=== PATIENT | female | born 1950 | race Caucasian/White ===

== ENCOUNTER 2020-02-17 08:25 | Outpatient (CLI) | payer BC, OTHER ==
[2020-02-17 11:43] LABS: BASOPHILS % (AUTO) 0.7 %; EOSINOPHILS # (AUTO) 0.2 10^3/uL (0.0-0.7); EOSINOPHILS % (AUTO) 3.8 %; HGB - HEMOGLOBIN 13.4 g/dL (12.0-16.0); LYMPHOCYTES # (AUTO) 1.5 10^3/uL (1.5-3.5); MEAN CORPUSCULAR HEMOGLOBIN 30.7 pg (27.0-31.0); MEAN CORPUSCULAR HGB CONC 32.2 g/dL (32.0-36.0); MEAN CORPUSCULAR VOLUME 95.4 fL (81.0-99.0); MEAN PLATELET VOLUME 11.7 fL (7.9-10.8); MONOCYTES # (AUTO) 0.4 10^3/uL (0.0-1.0); MONOCYTES % (AUTO) 9.7 %; NEUTROPHILS # (AUTO) 2.3 10^3/uL (1.5-6.6); NEUTROPHILS % (AUTO) 52.8 %; PLT - PLATELET COUNT 217 10^3/uL (130-450); RED BLOOD COUNT 4.36 10^6/uL (4.20-5.40); RED CELL DISTRIBUTION WIDTH 12.6 % (12.0-15.0); WHITE BLOOD COUNT 4.4 x10^3/uL (4.8-10.8)
[2020-02-17 12:16] LABS: ALBUMIN 4.8 g/dL (3.2-5.5); ALBUMIN/GLOBULIN RATIO 1.8 (1.0-2.2); ALKALINE PHOSPHATASE 71 IU/L (42-121); ALT ALANINE AMINOTRANSFERASE 17 IU/L (10-60); AST ASPARTATE AMINOTRANSFERASE 17 IU/L (10-42); BILIRUBIN,TOTAL 1.1 mg/dL (0.2-1.0); BUN - BLOOD UREA NITROGEN 14 mg/dL (6-20); CALCIUM 9.5 mg/dL (8.5-10.3); CARBON DIOXIDE - CO2 28 mmol/L (21-32); CHLORIDE 103 mmol/L (101-111); CHOL/HDL RATIO 2.5 (<4.4); CHOLESTEROL 208 mg/dL; CREATININE 0.7 mg/dL (0.4-1.0); GLUCOSE 92 mg/dL (70-100); HDL CHOLESTEROL 83 mg/dL; LDL CHOLESTEROL,CALCULATED 114 mg/dL; LDL/HDL RATIO 1.4 (<4.4); SODIUM 141 mmol/L (135-145); TOTAL PROTEIN 7.5 g/dL (6.7-8.2); VLDL CHOLESTEROL 11 mg/dL
== END 2020-02-17 23:59 | disposition home or self-care (01) ==
LOC: LAB.WCP 08:25
PROVIDERS: ATTEND Nurse Practitioner
DX: M25.512 Pain in left shoulder (principal); Z82.49 Family history of ischemic heart disease and other diseases of the circulatory system; K21.9 Gastro-esophageal reflux disease without esophagitis
CPT/HCPCS: 36415; 80053; 80061; 83721; 85025

== ENCOUNTER 2020-03-04 06:43 | Outpatient (CLI) | payer BC ==
--- NOTE | 2020-03-04 10:09 | XRAY Report ---
PROCEDURE: Shoulder 3 View LT INDICATIONS: SHOULDER PAIN TECHNIQUE: 3 views of the shoulder were acquired. COMPARISON: None. FINDINGS: Bones: No fractures or dislocations. Mild acromioclavicular joint and glenohumeral joint osteophytic changes are seen. No suspicious bony lesions. Visualized ribs appear intact. Soft tissues: No suspicious soft tissue calcifications. IMPRESSION: Mild left shoulder joint osteoarthritis. No fracture or dislocation. No suspicious bony lesion. Reviewed by: Patrice Temple MD on 03/04/2020 10:08 AM PDT Approved by: Patrice Temple MD on 03/04/2020 10:08 AM PDT Station ID: [id number]
--- NOTE | 2020-03-04 10:27 | Ultrasound Report ---
PROCEDURE: Ext Limited Non Vascular INDICATIONS: MASS OF LT SHOULDER JOINT, LT SHOULDER PAIN TECHNIQUE: Real-time scanning was performed of the posterior left shoulder, with image documentation . COMPARISON: None. FINDINGS: Focus ultrasound examination in posterior left shoulder at the level of scapula shows a 3.2 x 3 x 1.8 cm heterogeneously echogenic structure is subcutaneous soft tissue. No internal vascularity is seen. No surrounding hyperemia. No underlying left shoulder muscle involvement. IMPRESSION: Findings suggestive of a 3.2 x 3 x 1.8 cm lipoma in left posterior shoulder subcutaneous soft tissue. Reviewed by: Patrice Temple MD on 03/04/2020 10:26 AM PDT Approved by: Patrice Temple MD on 03/04/2020 10:26 AM PDT Station ID: [id number]
== END 2020-03-04 06:44 | disposition home or self-care (01) ==
LOC: DI 06:43
PROVIDERS: ATTEND Nurse Practitioner
DX: M19.012 Primary osteoarthritis, left shoulder (principal); R93.89 Abnormal findings on diagnostic imaging of other specified body structures
CPT/HCPCS: 76882

== ENCOUNTER 2020-05-05 11:45 | Outpatient (CLI) | payer BC ==
--- NOTE | 2020-05-06 13:53 | Mammography Report ---
BILATERAL DIGITAL SCREENING MAMMOGRAM 3D/2D: 05/05/2020 CLINICAL: Routine screening. Comparison is made to exam dated: 10/13/2014 mammogram - [facility]. The tissue of both breasts is extremely dense, which lowers the sensitivity of mammography. There are benign calcifications in both breasts. No significant masses, calcifications, or other findings are seen in either breast. There has been no significant interval change. IMPRESSION: BENIGN There is no mammographic evidence of malignancy. A 1 year screening mammogram is recommended. This exam was interpreted at Station ID: [id number]. NOTE: For mammograms, a report in lay terms will be sent to the patient. Approximately 15% of breast malignancies will not be visualized mammographically. In the management of a palpable breast mass, a negative mammogram must not discourage biopsy of a clinically suspicious lesion. Electronically Signed By: Joel Isaac M.D. [facility]:05/05/2020 17:05:59 ACR BI-RADS Category 2: Benign Finding(s) 3342F PARENCHYMAL PATTERN: (VD) - The breast(s) demonstrate(s) extremely dense parenchyma, limiting the sen sitivity of mammography. BI-RADS CATEGORY: (2) - 2 RECOMMENDATION: (ANNUAL) - Recommend routine annual screening mammography. [id number] 1 year screening LATERALITY: (B)
== END 2020-05-05 11:46 | disposition home or self-care (01) ==
LOC: DI 11:45
PROVIDERS: ATTEND Nurse Practitioner
DX: Z12.31 Encounter for screening mammogram for malignant neoplasm of breast (principal)
CPT/HCPCS: 77063; 77067

== ENCOUNTER 2020-12-07 08:00 | Outpatient (CLI) | payer BC ==
[2020-12-07 12:01] LABS: BASOPHILS % (AUTO) 0.4 %; EOSINOPHILS # (AUTO) 0.2 10^3/uL (0.0-0.7); EOSINOPHILS % (AUTO) 4.2 %; HCT - HEMATOCRIT 40.9 % (37.0-47.0); HGB - HEMOGLOBIN 12.8 g/dL (12.0-16.0); LYMPHOCYTES # (AUTO) 1.8 10^3/uL (1.5-3.5); LYMPHOCYTES % (AUTO) 35.1 %; MEAN CORPUSCULAR HEMOGLOBIN 29.8 pg (27.0-31.0); MEAN CORPUSCULAR HGB CONC 31.3 g/dL (32.0-36.0); MEAN CORPUSCULAR VOLUME 95.1 fL (81.0-99.0); MEAN PLATELET VOLUME 11.3 fL (7.9-10.8); MONOCYTES # (AUTO) 0.4 10^3/uL (0.0-1.0); MONOCYTES % (AUTO) 8.6 %; NEUTROPHILS # (AUTO) 2.6 10^3/uL (1.5-6.6); NEUTROPHILS % (AUTO) 51.5 %; PLT - PLATELET COUNT 226 10^3/uL (130-450); RED CELL DISTRIBUTION WIDTH 12.8 % (12.0-15.0)
[2020-12-07 12:07] LABS: CREATININE,URINE 63.9 mg/dL; MICROALBUM/CREATININE RATIO,UR 3.1 ug/mg (<30.0); MICROALBUMIN,URINE 0.2 mg/dL (0-300.0)
[2020-12-07 12:22] LABS: ALBUMIN 4.5 g/dL (3.2-5.5); ALBUMIN/GLOBULIN RATIO 1.7 (1.0-2.2); BILIRUBIN,TOTAL 0.6 mg/dL (0.2-1.0); CALCIUM 9.6 mg/dL (8.5-10.3); CREATININE 0.7 mg/dL (0.4-1.0); POTASSIUM 4.8 mmol/L (3.5-5.0); TOTAL PROTEIN 7.1 g/dL (6.7-8.2)
[2020-12-07 12:24] LABS: THYROID STIMULATING HORMONE 0.75 uIU/mL (0.34-5.60)
== END 2020-12-07 23:59 | disposition home or self-care (01) ==
LOC: LAB.WCP 08:00
PROVIDERS: ATTEND Family Medicine
DX: R63.4 Abnormal weight loss (principal)
CPT/HCPCS: 36415; 80053; 82043; 82570; 83615; 84134; 84443; 85025

== ENCOUNTER 2021-03-16 07:46 | Day surgery (SDC) | payer BC ==
[2021-03-16] MEDS ORDERED: LACTATED RINGERS 1,000 ML IV ONE ×2 (07:53→11:02)
--- NOTE | 2021-03-16 08:41 | ANESTHESIA ---
Pre-Anesthesia VS, & Labs - Diagnosis screening - Procedure colonoscopy Vital Signs: Temp Pulse Resp BP Pulse Ox 36.8 C 74 16 126/78 100 03/16/21 08:03 03/16/21 08:03 03/16/21 08:03 03/16/21 08:03 03/16/21 08:03 Height: 5 ft 4 in Weight (kg): 54 kg Body Mass Index: 20.4 BMI Classification: Healthy weight - NPO >8 hours - Is Patient ?: No Home Medications and Allergies none Allergies/Adverse Reactions: Allergies Allergy/AdvReac Type Severity Reaction Status Date / Time No Known Drug Allergies Allergy Verified 03/16/21 08:41 Anes History & Medical History - Anesthetic History Anesthesia Complications: reports: No previous complications - Medical History Cardiovascular: reports: None Pulmonary: reports: None Gastrointestinal: reports: None Urinary: reports: None Neuro: reports: None Musculoskeletal: reports: None Endocrine/Autoimmune: reports: None Blood Disorders: reports: None Skin: reports: None Smoking Status: Never smoker Psychosocial: reports: No issues indicated History of Cancer?: No - Surgical History Eyes Ears Nose Throat (EENT): reports: Tonsil/Adenoidectomy Exam General: Alert, Oriented x3, Cooperative, No acute distress Dental: WNL Mouth Openin Fingerbreadth Neck Mobility: Normal Mallampati classification: II Thyromental Distance: 4-6 cm Mental/Cognitive Status: Alert/Oriented X3, Normal for patient Plan Anesthesia Type: MAC Consent for Procedure(s) Verified and Reviewed: Yes Code Status: Attempt Resuscitation ASA classification: 1-Healthy patient Is this case an emergency?: No
[2021-03-16] MEDS ORDERED: MIDAZOLAM 2 MG/2 ML VIAL ONE (09:20)
[2021-03-16] MEDS ORDERED: fentaNYL 100 MCG/2 ML VIAL ONE ×2 (09:20→10:14)
[2021-03-16] MEDS ORDERED: PROPOFOL 200 MG/20 ML VIAL IVP ONE ×3 (09:20→14:27)
[2021-03-16] MEDS ORDERED: GLYCOPYRROLATE 1 MG/5 ML VIAL ONE (09:51)
[2021-03-16] MEDS ORDERED: IOPAMIDOL-300 100 ML VIAL ONE (11:33)
[2021-03-16 11:41] LABS: BASOPHILS % (AUTO) 0.5 %; EOSINOPHILS # (AUTO) 0.1 10^3/uL (0.0-0.7); EOSINOPHILS % (AUTO) 3.3 %; HGB - HEMOGLOBIN 12.3 g/dL (12.0-16.0); LYMPHOCYTES # (AUTO) 1.1 10^3/uL (1.5-3.5); LYMPHOCYTES % (AUTO) 25.6 %; MEAN CORPUSCULAR HEMOGLOBIN 30.1 pg (27.0-31.0); MEAN CORPUSCULAR HGB CONC 31.5 g/dL (32.0-36.0); MEAN CORPUSCULAR VOLUME 95.4 fL (81.0-99.0); MEAN PLATELET VOLUME 10.5 fL (7.9-10.8); MONOCYTES # (AUTO) 0.3 10^3/uL (0.0-1.0); MONOCYTES % (AUTO) 7.5 %; NEUTROPHILS # (AUTO) 2.7 10^3/uL (1.5-6.6); NEUTROPHILS % (AUTO) 62.9 %; PLT - PLATELET COUNT 228 10^3/uL (130-450); RED BLOOD COUNT 4.09 10^6/uL (4.20-5.40); RED CELL DISTRIBUTION WIDTH 12.6 % (12.0-15.0); WHITE BLOOD COUNT 4.3 x10^3/uL (4.8-10.8)
[2021-03-16] MEDS ORDERED: IOVERSOL 320 50 ML VIAL ONE (11:44)
[2021-03-16 11:52] LABS: ALBUMIN 3.9 g/dL (3.2-5.5); ALBUMIN/GLOBULIN RATIO 1.3 (1.0-2.2); BILIRUBIN,TOTAL 0.5 mg/dL (0.2-1.0); CALCIUM 9.3 mg/dL (8.5-10.3); CREATININE 0.6 mg/dL (0.4-1.0); POTASSIUM 4.3 mmol/L (3.5-5.0); TOTAL PROTEIN 6.8 g/dL (6.7-8.2)
--- NOTE | 2021-03-16 12:19 | ANESTHESIA POST OP EVALUATION ---
Anesthesia Post Eval - Post Anesthesia Eval Vitals: Last Vital Signs Temp 36.6 C 03/16/21 11:45 Pulse 60 03/16/21 11:45 Resp 12 03/16/21 11:45 BP 120/62 03/16/21 11:45 Pulse Ox 100 03/16/21 11:45 CV Function Including HR & BP: Stable Pain Control: Satisfactory Nausea & Vomiting: Negative Mental Status: Baseline Respiratory Status: Airway Patent Hydration Status: Satisfactory Anesthesia Complications: None
[2021-03-16] MEDS ORDERED: IOPAMIDOL-300 100 ML VIAL IVP ONE (13:30)
[2021-03-16] MEDS ORDERED: IOVERSOL 320 50 ML VIAL PO ONE (13:30)
--- NOTE | 2021-03-16 13:33 | CT Report ---
PROCEDURE: Abdomen/Pelvis W INDICATIONS: Right colon mass CONTRAST: IV CONTRAST: Isovue 300 ml: 100 PO CONTRAST: Optiray 320 ml50 TECHNIQUE: After the administration of weight appropriate dose of intravenous contrast, 5 mm thick sections acqu ired from the diaphragms to the symphysis. 5 mm thick coronal and sagittal reformats were acquired. For radiation dose reduction, the following was used: automated exposure control, adjustment of mA and/or kV according to patient size. Oral contrast was also administered. COMPARISON: None. FINDINGS: Image quality: Excellent. ABDOMEN: Lung bases: Patchy bibasilar atelectasis. No focal consolidation. Heart size is normal. Solid organs: Liver and spleen are normal in size and enhancement. There are a few subtle, sub-5 mm hepatic hypodensity which are too small to characterize but likely represent cysts versus hemangiomas . An example is noted in the right hepatic dome measuring approximately 4 mm seen on image 10, series 3 and image 26, series 6. Gallbladder is partially decompressed but otherwise unremarkable. No secon jonatan signs of acute inflammatory change. Biliary system is non dilated. Pancreas enhances normally. No adrenal nodules. Kidneys demonstrate normal size and enhancement, without hydronephrosis. Peritoneum and bowel: Oral contrast does not extend to the colon. Only a tiny amount of oral contras t is seen in the cecum. The colon is predominantly decompressed. There is mild circumferential wall t hickening of the cecum, possibility from biopsies obtained from today's colonoscopy. No evidence for free air or organized fluid collection. There is suggestion of minimal edema near the ileocecal valve . There is slight fatty prominence of the ileocecal valve but no evidence for enhancing mass lesion, extraluminal mass, or adenopathy. Remainder the visualized bowel loops demonstrate normal wall thickn ess and caliber. No free fluid or air. Nodes and vessels: No retroperitoneal or mesenteric adenopathy by size criteria. Aorta and inferior vena cava are normal in size. Miscellaneous: No ventral hernias. PELVIS: Genitourinary: Bladder wall thickness is normal for degree of distention. Miscellaneous: No inguinal hernias or adenopathy. Bones: No suspicious bony lesions. No acute vertebral body compression fractures. Minimal grade 1 anterolisthesis of L3 on L4. Lower lumbar facet arthropathy and spondylitic changes. IMPRESSION: 1. There is mild circumferential wall thickening of the decompressed cecum and proximal ascending col on possibly related to sequela of biopsy is from today's colonoscopy. No evidence for perforation or extraluminal fluid collections. There is no definite focal mass identified to correlate with colonosc opy findings. No adenopathy seen. There is minimal fatty hypertrophy of the ileocecal valve. 2. No acute abnormalities identified in the abdomen or pelvis. 3. A few scattered sub-5 mm hepatic hypodensities which are too small to characterize but likely repr esenting cysts versus hemangiomas. Findings were discussed telephonically with Dr. Brooks. Reviewed by: Channing Olivares MD on 03/16/2021 1:32 PM PDT Approved by: Channing Olivares MD on 03/16/2021 1:32 PM PDT Station ID: [id number]
[2021-03-16 14:10] VITALS: BP 110/62
== END 2021-03-16 07:47 | disposition home or self-care (01) ==
LOC: SDS 07:46
PROVIDERS: ATTEND Surgery
PROC: 0DBK8ZZ Excision of Ascending Colon, Via Natural or Artificial Opening Endoscopic (ICD-10-PCS; 2021-03-16)
PROC: 0DBL8ZZ Excision of Transverse Colon, Via Natural or Artificial Opening Endoscopic (ICD-10-PCS; principal; 2021-03-16 09:15)
DX: Z12.11 Encounter for screening for malignant neoplasm of colon (principal); C18.4 Malignant neoplasm of transverse colon; D12.2 Benign neoplasm of ascending colon; D12.5 Benign neoplasm of sigmoid colon; D12.3 Benign neoplasm of transverse colon; D12.8 Benign neoplasm of rectum
CPT/HCPCS: 36415; 45380; 45385; 74177; 80053; 82378; 85025; J7120; Q9967

== ENCOUNTER 2021-03-22 16:47 | Outpatient (CLI) | payer BC | END 2021-03-22 16:48 | disposition home or self-care (01) | LOC: COV 16:47 | PROVIDERS: ATTEND Surgery | DX: Z01.812 Encounter for preprocedural laboratory examination (principal); C18.9 Malignant neoplasm of colon, unspecified; Z20.822 Contact with and (suspected) exposure to COVID-19 ==

== ENCOUNTER 2021-03-25 08:08 | Inpatient (IN) | payer BC ==
[2021-03-25] MEDS ORDERED: CEFOTETAN DISODIUM 2 GM in SODIUM CHLORIDE 0.9% 100ML 100 ML IV SCH (10:00)
[2021-03-25] MEDS ORDERED: LACTATED RINGERS 1,000 ML IV ONE ×3 (10:29→14:52)
[2021-03-25] MEDS ORDERED: BUPIVACAINE 0.25% PF 30 ML VIAL ONE (10:37)
[2021-03-25] MEDS ORDERED: LIDOCAINE 2%-EPI 1:100000 20 ML MDV ONE (10:37)
[2021-03-25] MEDS ORDERED: CELECOXIB 100 MG CAPSULE PO ONE ×2 (10:46→10:49)
[2021-03-25] MEDS ORDERED: ACETAMINOPHEN 500 MG TABLET PO ONE ×2 (10:46→10:49)
[2021-03-25] MEDS ORDERED: GABAPENTIN 400 MG CAPSULE ONE (10:49)
--- NOTE | 2021-03-25 10:50 | ANESTHESIA ---
Pre-Anesthesia VS, & Labs - Diagnosis Right colon adenocarcinoma - Procedure Laparoscopic assisted colectomy Vital Signs: Temp Pulse Resp BP Pulse Ox 36.8 C 82 20 131/84 H 100 03/25/21 09:58 03/25/21 09:58 03/25/21 09:58 03/25/21 09:58 03/25/21 09:58 Height: 5 ft 4 in Weight (kg): 54 kg Body Mass Index: 20.4 BMI Classification: Healthy weight - NPO >8 hours - Is Patient ?: No Home Medications and Allergies Home Medications: Ambulatory Orders Cholecalciferol (Vitamin D3) [Vitamin D3] 1,000 units PO DAILY 03/19/21 Active Medications Acetaminophen (Acetaminophen 500 Mg Tablet) 1,000 mg PO ONCE ONE Stop: 03/25/21 10:47 Celecoxib (Celecoxib 100 Mg Capsule) 400 mg PO ONCE ONE Stop: 03/25/21 10:47 Gabapentin (Gabapentin 100 Mg Capsule) 800 mg PO ONCE ONE Stop: 03/25/21 10:48 Cefotetan Disodium 2 gm/ (Sodium Chloride) 100 mls @ 200 mls/hr IV ONCE LANDRY Stop: 03/25/21 13:00 Cholecalciferol (Vitamin D3) [Vitamin D3] 1,000 units PO DAILY 03/19/21 Allergies/Adverse Reactions: Allergies Allergy/AdvReac Type Severity Reaction Status Date / Time No Known Drug Allergies Allergy Verified 03/16/21 08:41 Anes History & Medical History - Anesthetic History Anesthesia Complications: reports: No previous complications - Medical History Cardiovascular: reports: None Pulmonary: reports: None Gastrointestinal: reports: GERD Urinary: reports: None Neuro: reports: None Musculoskeletal: reports: None Endocrine/Autoimmune: reports: None Blood Disorders: reports: None Skin: reports: None Smoking Status: Never smoker Psychosocial: reports: No issues indicated History of Cancer?: Yes - Surgical History General: reports: Colonoscopy Exam General: Alert, Oriented x3, Cooperative, No acute distress Dental: WNL Mouth Openin Fingerbreadth Neck Mobility: Normal Mallampati classification: II Thyromental Distance: 4-6 cm Mental/Cognitive Status: Alert/Oriented X3, Normal for patient Plan Anesthesia Type: General, Transverse Abdominis Plane (TAP) Block (Bilateral) Regional Block: Per Surgeon's request for Post Op pain control Consent for Procedure(s) Verified and Reviewed: Yes Code Status: Attempt Resuscitation ASA classification: 1-Healthy patient Is this case an emergency?: No
[2021-03-25] MEDS ORDERED: ROCURONIUM 50 MG/5 ML VIAL ONE ×2 (10:57→12:49)
[2021-03-25] MEDS ORDERED: PROPOFOL 200 MG/20 ML VIAL IVP ONE (10:57)
[2021-03-25] MEDS ORDERED: LIDOCAINE-MPF 2% 5 ML VIAL ONE (10:57)
[2021-03-25] MEDS ORDERED: MIDAZOLAM 2 MG/2 ML VIAL ONE (10:58)
[2021-03-25] MEDS ORDERED: fentaNYL 100 MCG/2 ML VIAL ONE ×2 (10:58→12:21)
[2021-03-25] MEDS ORDERED: GABAPENTIN 400 MG CAPSULE PO ONE (11:00)
[2021-03-25] MEDS ORDERED: DEXAMETHASONE 4 MG/ML VIAL ONE (12:00)
[2021-03-25] MEDS ORDERED: LIDOCAINE 2%-EPI 1:100000 20 ML MDV SUBQ ONE ×2 (12:08)
[2021-03-25] MEDS ORDERED: BUPIVACAINE 0.25% PF 30 ML VIAL SUBQ ONE ×2 (12:08)
[2021-03-25] MEDS ORDERED: LABETALOL 5 MG/1 ML 20 ML MDV ONE (12:46)
[2021-03-25] MEDS ORDERED: ROPIVACAINE 0.5% PF 20 ML AMPULE ONE (13:13)
[2021-03-25] MEDS ORDERED: EPINEPHrine 1 MG/ML AMP ONE (13:14)
[2021-03-25] MEDS ORDERED: SUGAMMADEX 200 MG/2 ML VIAL IVP ONE (13:37)
[2021-03-25] MEDS ORDERED: ONDANSETRON 4 MG/2 ML VIAL ONE (13:37)
[2021-03-25] MEDS ORDERED: ONDANSETRON 4 MG/2 ML VIAL IVP PRN ×2 (14:12→14:19)
[2021-03-25] MEDS ORDERED: ATROPINE ABBOJECT 1 MG/10 ML SYRINGE IVP PRN (14:19)
[2021-03-25] MEDS ORDERED: MORPHINE 2 MG/ML CARPUJECT IVP PRN (14:19)
[2021-03-25] MEDS ORDERED: fentaNYL 100 MCG/2 ML VIAL IVP PRN (14:19)
[2021-03-25] MEDS ORDERED: HYDROmorphone 0.5 MG/0.5 ML SYRINGE IVP PRN (14:19)
[2021-03-25] MEDS ORDERED: NALOXONE 0.4 MG/ML VIAL IVP PRN (14:19)
[2021-03-25] MEDS ORDERED: HYDROmorphone 0.5 MG/0.5 ML SYRINGE ONE ×2 (14:35→14:40)
[2021-03-25] MEDS ORDERED: LACTATED RINGERS 1,000 ML IV SCH (15:00)
[2021-03-25] MEDS: methocarbamoL 500 MG TABLET PO PRN (15:12)
--- NOTE | 2021-03-25 15:32 | HISTORY & PHYSICAL EXAMINATION ---
HPI - Admitted From Admitted from: Other (Surgery) - History Obtained From History obtained from: Patient - History of Present Illness Pain/Problem Location Description: New diagnosis of right colon cancer HPI Comment/Other: Azeb is a mery and remarkably healthy 70-year-old lady who presented for her for screening colonoscopy approximately 10 days ago. At that time she was noted to have a right colon mass as well as multiple polyps throughout her colon. Pathology returned a diagnosis of infiltrating cancer in the right colon and all of the other remaining polyps were tubular adenomas. She presents today for elective right hemicolectomy for treatment of right colon cancer. PMH/PSH - Past Medical History Cardiovascular: positive: None Respiratory: positive: None Neuro: positive: None Endocrine/Autoimmune: positive: None GI: positive: GERD : positive: None HEENT: positive: Chronic vision loss Musculoskeletal: positive: None Derm: positive: None MRSA Hx?: No - Past Surgical History General: positive: Colonoscopy Social & Family Hx - Living Situation Living Arrangement: At home Living Situation: With spouse/s.o. - Social History Smoking Status: Never smoker Meds/Allgy - Home Medications Home Medications: Ambulatory Orders Medication Instructions Recorded Confirmed Cholecalciferol (Vitamin D3) 1,000 units PO DAILY 03/19/21 03/25/21 [Vitamin D3] - Allergies Allergies/Adverse Reactions: Allergies Allergy/AdvReac Type Severity Reaction Status Date / Time No Known Drug Allergies Allergy Verified 03/16/21 08:41 Review of Systems - All Other Systems All Other Systems: reports: Reviewed and negative Exam - Vital Signs Reviewed Vital Signs: Yes Vital Signs: Vital Signs x48h Temp Pulse Pulse Resp BP BP Pulse Ox 03/25/21 15:05 63 12 140/79 H 100 03/25/21 14:42 36.4 C L 74 12 129/76 95 03/25/21 14:25 36.6 C 76 17 140/86 H 100 03/25/21 14:19 36.2 C L 77 18 148/82 H 100 03/25/21 14:14 36.5 C 74 14 143/87 H 100 03/25/21 14:09 36.8 C 73 12 150/85 H 100 03/25/21 14:04 36.8 C 76 16 145/87 H 100 03/25/21 09:58 36.8 C 82 20 131/84 H 100 - Physical Exam General Appearance: positive: No acute distress, Alert Eyes Bilateral: positive: Normal inspection, PERRL, EOMI ENT: positive: ENT inspection nml, Pharynx nml, No signs of dehydration Neck: positive: Nml inspection, Thyroid nml, No JVD Respiratory: positive: No respiratory distress, Breath sounds nml Cardiovascular: positive: Regular rate & rhythm, No murmur Peripheral Pulses: positive: 1+ Abdomen: positive: Nml bowel sounds, No distention. negative: Guarding, Rebound Back: negative: CVA tenderness (R), CVA tenderness (L) Skin: positive: Color nml Neurologic/Psychiatric: positive: Oriented x3 Results - Diagnostic Imaging Results Diagnostic Imaging Results Comments: CT scan of the abdomen and pelvis revealed no evidence of metastatic disease and no significant lymphadenopathy Impression/Plan - Problem List Problem List: New diagnosis of right colon cancer now for elective right hemicolectomy. We have discussed the risks, benefits, and alternatives to the operation. The patient has expressed verbal and written consent to proceed
--- NOTE | 2021-03-25 15:54 | ANESTHESIA POST OP EVALUATION ---
Anesthesia Post Eval - Post Anesthesia Eval Vitals: Last Vital Signs Temp 36.4 C L 03/25/21 14:42 Pulse 63 03/25/21 15:05 Resp 12 03/25/21 15:05 BP 140/79 H 03/25/21 15:05 Pulse Ox 100 03/25/21 15:05 CV Function Including HR & BP: Stable Pain Control: Satisfactory Nausea & Vomiting: Negative Mental Status: Baseline Respiratory Status: Airway Patent Hydration Status: Satisfactory Anesthesia Complications: None
[2021-03-25] MEDS: LACTATED RINGERS 1,000 ML IV SCH (15:57)
[2021-03-25] MEDS: HYDROmorphone 0.5 MG/0.5 ML SYRINGE IVP PRN (16:17)
--- NOTE | 2021-03-25 16:35 | OPERATIVE REPORT ---
Operative Report - General Admit Date: 03/25/21 Planned Procedure: Laparoscopic right hemicolectomy Pre-Op Diagnosis: Right colon cancer Procedure Performed: Laparoscopic right hemicolectomy with extracorporeal anastomosis Post Op Diagnosis: Right colon cancer - Procedure Note Primary Surgeon: Cecilia Secondary Surgeon: Andrew Anesthesia Provider: ANDERSON Butler Anesthesia Technique: General ET tube Pathology: Right colon to pathology in formalin IV Fluids (mL): 1,600 Estimated Blood Loss (mL): 25 Indications: Biopsy proven right colon cancer Findings: Neoplasm identified in the proximal right colon Complications: None apparent - Other Other Information/Narrative: After obtaining informed consent, the patient is brought to the operating room and placed in the supine position on the operating table. Following successful induction of general endotracheal anesthesia, appropriate padding of all bony prominences, and placement appropriate monitors, the abdomen is prepped and draped in the standard surgical fashion. A timeout was held per scope protocol. All elements of the surgical safety checklist were followed before, during, and after the procedure. We began the procedure by infiltrating a mixture of local anesthetics inferior to the umbilicus. A 1.5 cm incision was created here and carried down through the skin and subcutaneous tissue to reveal the fascia below. 2-0 Vicryl retention sutures were placed on either side of the midline and the abdomen entered under direct vision using a 15 blade scalpel. A 12 mm blunt White balloon trocar was placed in the abdominal cavity and it was insufflated to 15 mmHg pressure. A 5 mm trocar was placed midway between the umbilicus and the pubis and a second 5 mm trocar placed in the left lower quadrant. The camera was placed in the midline position and the abdomen surveyed. There was no gross evidence of pathology. The liver and gallbladder appeared normal. The spleen was smooth and normal in appearance. There were no other masses or hernias appreciated.The patient was placed in Trendelenburg with the left side rotated toward the floor. This allowed better visualization of the right colon and region of the cecum by allowing gravity to help with retraction. We began by lifting the terminal ileum and dividing the retroperitoneal attachments freeing the ileum laterally. We continued dissection laterally along the white line of Toldt and an onion skin fashion. We used blunt forceps to roll the tissue medially and to dissected it within its planes using LigaSure device to divide tissue that was easily transilluminated. The right ureter was identified just posterior and lateral to the terminal ileum and was carefully preserved.Once the entire right colon and ileum were mobilized, We placed the patient in reverse Trendelenburg position. A third 5 mm trocar was placed in the left upper quadrant. We began by opening the gastrocolic ligament and beginning dissection in a medial to lateral fashion.Again care was taken to divide tissue only that could be easily seen through.The duodenum was visualized and carefully preserved. It was attached by multiple adhesions to the gallbladder. These were filmy in nature and we were able to gently brush them down.We continued our dissection laterally until the 2 lines of dissection joint. We were careful to preserve the retroperitoneum and not to enter Gerota's fascia. We continued carefully easing the colon toward the midline and dividing tissue as we could see through it.Once mobilization was complete, the colon was returned to its anatomic position.The transverse colon was lifted revealing the open window expected in the dissection at this point. We continued our use of the LigaSure along the mesentery laterally until the right colic branch of the artery was identified.We identified both the artery and vein. Both were addressed separately with hemoclips and then divided at their origin using the LigaSure device. We turned our attention back to the transverse colon. We carefully identified the right branch of the middle colic artery. This was also ligated with hemoclips and then divided with LigaSure device. The remainder of the middle colic artery was visualized and preserved.The abdomen was checked for hemostasis. It was carefully irrigated with 500 cc of warm saline solution and aspirated free of all fluid and particulate matter. At this point we concluded the laparoscopic portion of the procedure and prepared to perform an extrac orporeal anastomosis. All trochars were removed under direct vision. The midline incision was extended to 4 cm with the fascial incision extended to 6 cm. A small wound management device was placed in the abdominal cavity. The colon was easily grasped as it had been placed right under the wound before closing the laparoscopic portion of the procedure. The colon and ileum were easily delivered into the field.The ligated branches of the right colic artery and the right branch of the middle colic artery were both identified. A 75 mm LANA stapling device was used to divide the ileum just proximal to the ileocecal valve. A Melecio clamp was placed on this resection margin to maintain orientation. We then divided the transverse colon in the same manner and again placed a Melecio device to maintain orientation. The specimen was passed from the table. The ileum and transverse colon were then lined up to perform a [id number] functional end-to-end anastomosis. Silk sutures were placed for retention just proximal to the resection line of each organ. An opening was made in the ileum and in the colon to allow for a 75 mm LANA stapling device. The device was fired. The anastomosis was determined to be hemostatic and patent. Multiple silk sutures were then used to carefully meticulously aligned the edges of the colon and ileum prior to closing the anastomotic defect. A TA 90 stapling device was then placed across the end and fired. The remaining resection margin was trimmed. The entire staple line was then oversewn in a Lembert fashion with interrupted 3-0 Vicryl sutures. The anastomosis was checked for patency. Additional supporting sutures were placed in the crotch and and the other staple lines. It was tested and found to be watertight by occluding both ends and applying pressure.The anastomosis was dropped back into the abdominal cavity. The abdomen was once again irrigated with warm saline solution and aspirated free of all fluid and particulate matter. The wound global marketing operations manager was removed. The midline incision was closed with running looped PDS suture. All skin incisions were closed with 4-0 Monocryl subcuticular stitches. All sponge, needle, and instrument counts were correct at the conclusion of the case. The patient was allowed to wake from anesthesia without difficulty and taken to the postanesthesia care unit in good condition.
[2021-03-25] MEDS: ACETAMINOPHEN 1,000 MG/100 ML 100 ML IV SCH (18:07)
[2021-03-25] MEDS: PREGABALIN 25 MG CAPSULE PO SCH (21:09)
[2021-03-25] MEDS: CEFOTETAN DISODIUM 1 GM in SODIUM CHLORIDE 0.9% MINIBAG 100 ML IV SCH (21:10)
[2021-03-26] MEDS: ACETAMINOPHEN 1,000 MG/100 ML 100 ML IV SCH ×2 (00:24→06:14)
[2021-03-26] MEDS: methocarbamoL 500 MG TABLET PO PRN (03:45)
[2021-03-26] MEDS: PANTOPRAZOLE 40 MG VIAL IVP SCH (06:09)
[2021-03-26 07:22] LABS: BASOPHILS % (AUTO) 0.3 %; EOSINOPHILS % (AUTO) 0.1 %; HCT - HEMATOCRIT 33.4 % (37.0-47.0); HGB - HEMOGLOBIN 10.6 g/dL (12.0-16.0); LYMPHOCYTES # (AUTO) 1.7 10^3/uL (1.5-3.5); LYMPHOCYTES % (AUTO) 17.6 %; MEAN CORPUSCULAR HGB CONC 31.7 g/dL (32.0-36.0); MEAN CORPUSCULAR VOLUME 94.6 fL (81.0-99.0); MONOCYTES # (AUTO) 0.8 10^3/uL (0.0-1.0); MONOCYTES % (AUTO) 8.5 %; NEUTROPHILS % (AUTO) 73.1 %; PLT - PLATELET COUNT 194 10^3/uL (130-450); RED BLOOD COUNT 3.53 10^6/uL (4.20-5.40); RED CELL DISTRIBUTION WIDTH 12.7 % (12.0-15.0); WHITE BLOOD COUNT 9.6 x10^3/uL (4.8-10.8)
[2021-03-26 07:27] LABS: ALBUMIN 3.4 g/dL (3.2-5.5); ALBUMIN/GLOBULIN RATIO 1.5 (1.0-2.2); BILIRUBIN,TOTAL 0.9 mg/dL (0.2-1.0); CALCIUM 8.9 mg/dL (8.5-10.3); CREATININE 0.7 mg/dL (0.4-1.0); POTASSIUM 4.2 mmol/L (3.5-5.0); TOTAL PROTEIN 5.7 g/dL (6.7-8.2)
[2021-03-26] MEDS ORDERED: SODIUM CHLORIDE 0.9% MINIBAG 100 ML IV ONE (08:44)
[2021-03-26] MEDS: PREGABALIN 25 MG CAPSULE PO SCH ×2 (08:54→21:15)
[2021-03-26] MEDS: CEFOTETAN DISODIUM 1 GM in SODIUM CHLORIDE 0.9% MINIBAG 100 ML IV SCH (08:55)
[2021-03-26] MEDS: ENOXAPARIN 40 MG/0.4 ML SYRINGE SUBQ SCH (08:55)
--- NOTE | 2021-03-26 11:54 | PHARMACY PROGRESS NOTE ---
- Best Possible Medication History Admit Date and Time: 03/25/21 0943 Processed by: Nursing Medication History completed: Yes Patient Interview: Completed (MED REC COMPLETED BY NURSING) As the person ultimately responsible for medication therapy, providers are able to order a medication from an existing home medication list in [facility] via the "Reconcile Routine" prior to Confirmation of that medication by it desktop support technician. Such practice is discouraged except when the physician, in their clinical judgment, deems that a medical need exists for a medication without regard to previous use.
[2021-03-26] MEDS: LACTATED RINGERS 1,000 ML IV SCH (11:55)
[2021-03-26] MEDS: ACETAMINOPHEN 500 MG TABLET PO PRN ×2 (12:03→20:40)
[2021-03-26] MEDS: HYDROmorphone 0.5 MG/0.5 ML SYRINGE IVP PRN (14:46)
--- NOTE | 2021-03-26 17:11 | PROVIDER PROGRESS NOTE ---
Subjective - General Admit Date: 03/25/21 Procedure Date: 03/25/21 Post Op Days: 1 Procedure Performed: Laparoscopic right hemicolectomy - Review of Systems Wound/Incisions: positive: Healing well General: positive: No symptoms HEENT: positive: No symptoms Pulmonary: positive: No symptoms Cardiovascular: positive: No symptoms Gastrointestinal: positive: No symptoms Genitourinary: positive: No symptoms Psychiatric: positive: No symptoms All Other Systems: positive: Reviewed and negative - Other Other Information/Narrative: Azeb reports she is feeling pretty well today. She says her pain is well controlled. She denies any nausea. She has tolerated p.o. without difficulty. Up to the bathroom by herself.She sat up in a chair most of the day. Objective - Patient Data Reviewed Vital Signs: Yes Vital Signs: Vital Signs x48h Temp Pulse Resp BP Pulse Ox 03/26/21 15:06 36.2 C L 66 16 122/65 100 03/26/21 11:30 36.2 C L 67 18 104/61 100 Weight: Weight 03/24/21 03/25/21 03/26/21 23:59 23:59 23:59 Weight (kg) 58 kg Intake & Output: Intake and Output Totals x24h 03/24/21 03/25/21 03/26/21 23:59 23:59 23:59 Intake Total 1700 2783.333 Output Total 560 1500 Balance 1140 1283.333 - Lab Results Lab Results: 03/26/21 06:37 03/26/21 06:37 Other Lab Results: Lab Results x24hrs 03/26/21 03/26/21 Range/Units 06:37 06:37 WBC 9.6 (4.8-10.8) x10^3/uL RBC 3.53 L (4.20-5.40) 10^6/uL Hgb 10.6 L (12.0-16.0) g/dL Hct 33.4 L (37.0-47.0) % MCV 94.6 (81.0-99.0) fL MCH 30.0 (27.0-31.0) pg MCHC 31.7 L (32.0-36.0) g/dL RDW 12.7 (12.0-15.0) % Plt Count 194 (130-450) 10^3/uL MPV 11.0 H (7.9-10.8) fL Neut # (Auto) 7.0 H (1.5-6.6) 10^3/uL Lymph # (Auto) 1.7 (1.5-3.5) 10^3/uL [place] # (Auto) 0.8 (0.0-1.0) 10^3/uL Eos # (Auto) 0.0 (0.0-0.7) 10^3/uL Baso # (Auto) 0.0 (0.0-0.1) 10^3/uL Absolute Nucleated RBC 0.00 x10^3/uL Nucleated RBC % 0.0 /100WBC Sodium 139 (135-145) mmol/L Potassium 4.2 (3.5-5.0) mmol/L Chloride 102 (101-111) mmol/L Carbon Dioxide 28 (21-32) mmol/L Anion Gap 9.0 (6-13) BUN 10 (6-20) mg/dL Creatinine 0.7 (0.4-1.0) mg/dL Estimated GFR (MDRD) 83 L (>89) Glucose 110 H (70-100) mg/dL Calcium 8.9 (8.5-10.3) mg/dL Total Bilirubin 0.9 (0.2-1.0) mg/dL AST 17 (10-42) IU/L ALT 15 (10-60) IU/L Alkaline Phosphatase 61 (42-121) IU/L Total Protein 5.7 L (6.7-8.2) g/dL Albumin 3.4 (3.2-5.5) g/dL Globulin 2.3 (2.1-4.2) g/dL Albumin/Globulin Ratio 1.5 (1.0-2.2) - Current Medications Current Medications: Current Medications Generic Name Dose Route Start Last Admin Trade Name Freq PRN Reason Stop Dose Admin Acetaminophen 500 mg 03/26/21 11:54 03/26/21 12:03 Acetaminophen 500 Mg Tablet PO 500 mg Q4HR PRN Administration Pain or Fever > 38C (100.4F) Enoxaparin Sodium 40 mg 03/26/21 09:00 03/26/21 08:55 Enoxaparin 40 Mg/0.4 Ml Syringe SUBQ 40 mg DAILY LANDRY Administration Hydromorphone HCl 0.5 mg 03/25/21 14:12 03/26/21 14:46 Hydromorphone 0.5 Mg/0.5 Ml Syringe IVP 0.5 mg Q2H PRN Administration PAIN Lactated Ringer's 1,000 mls @ 50 mls/hr 03/25/21 15:00 03/26/21 11:55 Lr IV 50 mls/hr .Q20H LANDRY Administration Methocarbamol 500 mg 03/25/21 14:23 03/26/21 03:45 Methocarbamol 500 Mg Tablet PO 500 mg Q6HR PRN Administration Spasms Pantoprazole Sodium 40 mg 03/26/21 07:00 03/26/21 06:09 Pantoprazole 40 Mg Vial IVP 40 mg QDAC LANDRY Administration Pregabalin 75 mg 03/25/21 21:00 03/26/21 08:54 Pregabalin 25 Mg Capsule PO 75 mg BID LANDRY Administration - Physical Exam Wound/Incisions: positive: Healing well General Appearance: positive: No acute distress Respiratory: positive: No respiratory distress, Breath sounds nml Cardiovascular: positive: Regular rate & rhythm Abdomen: positive: Nml bowel sounds, Tenderness, Other (Wound is clean and dry with minimal bruising. Appropriately tender to palpation. Active bowel sounds.) Neurologic/Psychiatric: positive: Oriented x3 ABX Reporting Has patient been on IV antibiotics over the past 48 hours?: Yes Impression/Plan - Problem List Problem List: Right colon cancer status post laparoscopic right hemicolectomy. 1. Progressing well. No flatus or bowel movement but also no nausea and tolerating p.o. without difficulty 2. Pain is reasonably well controlled with current measures. 3. Continue eras protocol.
[2021-03-27] MEDS ORDERED: BENZOCAINE/MENTHOL LOZENGE MM PRN (02:05)
[2021-03-27] MEDS: methocarbamoL 500 MG TABLET PO PRN (02:17)
[2021-03-27] MEDS: HYDROmorphone 0.5 MG/0.5 ML SYRINGE IVP PRN (02:17)
[2021-03-27] MEDS: PANTOPRAZOLE 40 MG VIAL IVP SCH (07:04)
[2021-03-27] MEDS: oxyCODONE 5 MG TABLET PO PRN ×2 (07:04→16:21)
[2021-03-27] MEDS: LACTATED RINGERS 1,000 ML IV SCH (07:06)
[2021-03-27 07:10] LABS: ALBUMIN 3.7 g/dL (3.2-5.5); ALBUMIN/GLOBULIN RATIO 1.3 (1.0-2.2); BILIRUBIN,TOTAL 0.8 mg/dL (0.2-1.0); CALCIUM 9.2 mg/dL (8.5-10.3); CREATININE 0.6 mg/dL (0.4-1.0); POTASSIUM 4.1 mmol/L (3.5-5.0); TOTAL PROTEIN 6.6 g/dL (6.7-8.2)
[2021-03-27] MEDS: ACETAMINOPHEN 500 MG TABLET PO PRN ×2 (07:13→16:21)
[2021-03-27 07:18] LABS: BASOPHILS % (AUTO) 0.4 %; EOSINOPHILS # (AUTO) 0.1 10^3/uL (0.0-0.7); EOSINOPHILS % (AUTO) 1.6 %; HCT - HEMATOCRIT 35.7 % (37.0-47.0); HGB - HEMOGLOBIN 11.4 g/dL (12.0-16.0); LYMPHOCYTES # (AUTO) 1.7 10^3/uL (1.5-3.5); MEAN CORPUSCULAR HGB CONC 31.9 g/dL (32.0-36.0); MEAN CORPUSCULAR VOLUME 93.9 fL (81.0-99.0); MEAN PLATELET VOLUME 11.1 fL (7.9-10.8); MONOCYTES # (AUTO) 0.6 10^3/uL (0.0-1.0); MONOCYTES % (AUTO) 7.5 %; NEUTROPHILS # (AUTO) 5.7 10^3/uL (1.5-6.6); NEUTROPHILS % (AUTO) 69.3 %; PLT - PLATELET COUNT 202 10^3/uL (130-450); RED CELL DISTRIBUTION WIDTH 12.8 % (12.0-15.0); WHITE BLOOD COUNT 8.2 x10^3/uL (4.8-10.8)
[2021-03-27] MEDS ORDERED: DOCUSATE SODIUM 250 MG CAPSULE PO SCH (09:00)
[2021-03-27] MEDS: PREGABALIN 25 MG CAPSULE PO SCH ×2 (09:14→20:31)
[2021-03-27] MEDS: ENOXAPARIN 40 MG/0.4 ML SYRINGE SUBQ SCH (09:16)
--- NOTE | 2021-03-27 10:35 | PROVIDER PROGRESS NOTE ---
Subjective - General Admit Date: 03/25/21 Procedure Date: 03/25/21 Post Op Days: 2 Procedure Performed: Laparoscopic right hemicolectomy - Review of Systems Wound/Incisions: positive: Healing well General: positive: No symptoms HEENT: positive: No symptoms Pulmonary: positive: No symptoms Cardiovascular: positive: No symptoms Gastrointestinal: positive: No symptoms Genitourinary: positive: No symptoms Psychiatric: positive: No symptoms All Other Systems: positive: Reviewed and negative - Other Other Information/Narrative: Azeb is doing great today. She is already sitting up in a chair at the bedside. She said she tolerated breakfast without difficulty and she feels activity in her stomach but has not passed gas or had a bowel movement.She says her pain is well controlled. Objective - Patient Data Reviewed Vital Signs: Yes Vital Signs: Vital Signs x48h Temp Pulse Resp BP Pulse Ox 03/27/21 08:00 36.3 C L 90 17 116/63 99 03/27/21 04:00 36.4 C L 84 18 129/64 95 Weight: Weight 03/25/21 03/26/21 03/27/21 23:59 23:59 23:59 Weight (kg) 58 kg Intake & Output: Intake and Output Totals x24h 03/25/21 03/26/21 03/27/21 23:59 23:59 23:59 Intake Total 1700 3103.333 1159.167 Output Total 560 1500 Balance 1140 1220.477 7539.167 - Lab Results Lab Results: 03/27/21 06:22 03/27/21 06:22 Other Lab Results: Lab Results x24hrs 03/27/21 03/27/21 Range/Units 06:22 06:22 WBC 8.2 (4.8-10.8) x10^3/uL RBC 3.80 L (4.20-5.40) 10^6/uL Hgb 11.4 L (12.0-16.0) g/dL Hct 35.7 L (37.0-47.0) % MCV 93.9 (81.0-99.0) fL MCH 30.0 (27.0-31.0) pg MCHC 31.9 L (32.0-36.0) g/dL RDW 12.8 (12.0-15.0) % Plt Count 202 (130-450) 10^3/uL MPV 11.1 H (7.9-10.8) fL Neut # (Auto) 5.7 (1.5-6.6) 10^3/uL Lymph # (Auto) 1.7 (1.5-3.5) 10^3/uL [place] # (Auto) 0.6 (0.0-1.0) 10^3/uL Eos # (Auto) 0.1 (0.0-0.7) 10^3/uL Baso # (Auto) 0.0 (0.0-0.1) 10^3/uL Absolute Nucleated RBC 0.00 x10^3/uL Nucleated RBC % 0.0 /100WBC Sodium 144 (135-145) mmol/L Potassium 4.1 (3.5-5.0) mmol/L Chloride 103 (101-111) mmol/L Carbon Dioxide 31 (21-32) mmol/L Anion Gap 10.0 (6-13) BUN 8 (6-20) mg/dL Creatinine 0.6 (0.4-1.0) mg/dL Estimated GFR (MDRD) 99 (>89) Glucose 103 H (70-100) mg/dL Calcium 9.2 (8.5-10.3) mg/dL Total Bilirubin 0.8 (0.2-1.0) mg/dL AST 16 (10-42) IU/L ALT 16 (10-60) IU/L Alkaline Phosphatase 64 (42-121) IU/L Total Protein 6.6 L (6.7-8.2) g/dL Albumin 3.7 (3.2-5.5) g/dL Globulin 2.9 (2.1-4.2) g/dL Albumin/Globulin Ratio 1.3 (1.0-2.2) - Current Medications Current Medications: Current Medications Generic Name Dose Route Start Last Admin Trade Name Freq PRN Reason Stop Dose Admin Acetaminophen 500 mg 03/26/21 11:54 03/27/21 07:13 Acetaminophen 500 Mg Tablet PO 500 mg Q4HR PRN Administration Pain or Fever > 38C (100.4F) Docusate Sodium 250 mg 03/27/21 09:00 03/27/21 09:14 Docusate Sodium 250 Mg Capsule PO 250 mg DAILY LANDRY Administration Enoxaparin Sodium 40 mg 03/26/21 09:00 03/27/21 09:16 Enoxaparin 40 Mg/0.4 Ml Syringe SUBQ Not Given DAILY LANDRY Hydromorphone HCl 0.5 mg 03/25/21 14:12 03/27/21 02:17 Hydromorphone 0.5 Mg/0.5 Ml Syringe IVP 0.5 mg Q2H PRN Administration PAIN Lactated Ringer's 1,000 mls @ 50 mls/hr 03/25/21 15:00 03/27/21 07:06 Lr IV 50 mls/hr .Q20H LANDRY Administration Methocarbamol 500 mg 03/25/21 14:23 03/27/21 02:17 Methocarbamol 500 Mg Tablet PO 500 mg Q6HR PRN Administration Spasms Oxycodone HCl 5 mg 03/26/21 17:12 03/27/21 07:04 Oxycodone 5 Mg Tablet PO 5 mg Q4HR PRN Administration PAIN Pantoprazole Sodium 40 mg 03/26/21 07:00 03/27/21 07:04 Pantoprazole 40 Mg Vial IVP 40 mg QDAC LANDRY Administration Pregabalin 75 mg 03/25/21 21:00 03/27/21 09:14 Pregabalin 25 Mg Capsule PO 75 mg BID LANDRY Administration Throat Lozenges 1 lozenge 03/27/21 02:05 03/27/21 02:17 Benzocaine/Menthol Lozenge MM 1 lozenge Q2HR PRN Administration Throat pain - Physical Exam Wound/Incisions: positive: Healing well General Appearance: positive: No acute distress Eyes Bilateral: positive: Normal inspection Respiratory: positive: No respiratory distress, Breath sounds nml Cardiovascular: positive: Regular rate & rhythm Abdomen: positive: Tenderness (Appropriately tender to palpation with mild bruising. Active bowel sounds.) Neurologic/Psychiatric: positive: Oriented x3 ABX Reporting Has patient been on IV antibiotics over the past 48 hours?: Yes Impression/Plan - Problem List Problem List: We will stop her IV hydrocodone and switch to oral Oxycodone. 1 dose of mineral oil today to help things get moving. Continue her p.o. diet. As long is she continues to do well, the plan will be to discharge home in the morning.
[2021-03-27] MEDS ORDERED: MINERAL OIL 473 ML BOTTLE PO ONE (11:00)
[2021-03-27] MEDS ORDERED: polyethylene glycoL 3350 17 GM PACKET PO SCH (20:00)
[2021-03-28] MEDS: ACETAMINOPHEN 500 MG TABLET PO PRN ×2 (00:38→07:03)
[2021-03-28] MEDS: methocarbamoL 500 MG TABLET PO PRN ×2 (00:39→07:02)
[2021-03-28 06:39] LABS: BASOPHILS % (AUTO) 0.3 %; EOSINOPHILS # (AUTO) 0.2 10^3/uL (0.0-0.7); EOSINOPHILS % (AUTO) 2.3 %; HCT - HEMATOCRIT 35.8 % (37.0-47.0); HGB - HEMOGLOBIN 11.3 g/dL (12.0-16.0); LYMPHOCYTES # (AUTO) 0.9 10^3/uL (1.5-3.5); LYMPHOCYTES % (AUTO) 11.9 %; MEAN CORPUSCULAR HEMOGLOBIN 30.1 pg (27.0-31.0); MEAN CORPUSCULAR HGB CONC 31.6 g/dL (32.0-36.0); MEAN CORPUSCULAR VOLUME 95.2 fL (81.0-99.0); MEAN PLATELET VOLUME 10.7 fL (7.9-10.8); MONOCYTES # (AUTO) 0.6 10^3/uL (0.0-1.0); MONOCYTES % (AUTO) 7.6 %; NEUTROPHILS # (AUTO) 5.7 10^3/uL (1.5-6.6); NEUTROPHILS % (AUTO) 77.6 %; PLT - PLATELET COUNT 193 10^3/uL (130-450); RED BLOOD COUNT 3.76 10^6/uL (4.20-5.40); RED CELL DISTRIBUTION WIDTH 12.8 % (12.0-15.0); WHITE BLOOD COUNT 7.4 x10^3/uL (4.8-10.8)
[2021-03-28 06:55] LABS: ALBUMIN 3.4 g/dL (3.2-5.5); ALBUMIN/GLOBULIN RATIO 1.1 (1.0-2.2); BILIRUBIN,TOTAL 0.7 mg/dL (0.2-1.0); CALCIUM 9.2 mg/dL (8.5-10.3); CREATININE 0.6 mg/dL (0.4-1.0); POTASSIUM 3.6 mmol/L (3.5-5.0); TOTAL PROTEIN 6.4 g/dL (6.7-8.2)
--- NOTE | 2021-03-28 06:56 | DISCHARGE SUMMARY ---
"Discharge Summary Admit Date: 03/25/21 Discharge Date: 03/28/21 Discharging Provider: Uri Morales MD Primary Care Provider: Steven Awad MD Code Status: Attempt Resuscitation Condition at Discharge: Good Discharge Disposition: 01 Home, Self Care - DIAGNOSES Admission Diagnoses: RIGHT colon cancer and multiple RIGHT colon polyps Discharge Diagnoses with Status of Each Condition: RIGHT colon cancer and polyps resected - HPI History of Present Illness: Patient is an exceedingly pleasant 70 year old female whose screening colonoscopy revealed the above. Otherwise asymptomatic preoperatively. - CONSULTS | PROCEDURES Consultations: None. Procedures: Laparoscopic RIGHT hemicolectomy performed by Dr. Brooks on 03-25-2021. - HOSPITAL COURSE Hospital Course: ERAS protocol instituted, bowel movement this AM, tolerating diet, patient has done well. - ALLERGIES Allergies/Adverse Reactions: Allergies Allergy/AdvReac Type Severity Reaction Status Date / Time No Known Drug Allergies Allergy Verified 03/16/21 08:41 - MEDICATIONS Home Medications: Ambulatory Orders Medication Instructions Recorded Confirmed Cholecalciferol (Vitamin D3) 1,000 units PO DAILY 03/19/21 03/25/21 [Vitamin D3] - PHYSICAL EXAM AT DISCHARGE General Appearance: positive: No acute distress, Alert Eyes Bilateral: positive: No lid inflammation, Conjunctivae nml ENT: positive: Dry mucous membranes Neck: positive: Trachea midline. negative: No JVD Respiratory: positive: Chest non-tender, No respiratory distress, Breath sounds nml Cardiovascular: positive: Regular rate & rhythm, No murmur, No gallop Abdomen: positive: Non-tender, Nml bowel sounds, No distention, Tenderness (Minimal incisional.) Skin: positive: Color nml, No rash, Warm, Dry. negative: Diaphoresis Extremities: positive: Non-tender, Nml appearance. negative: Venita's sign/cords Neurologic/Psychiatric: positive: Oriented x3, CN's nml (2-12), Motor nml, Sensation nml, Mood/affect nml - LABS Result Diagrams: 03/28/21 06:19 03/27/21 06:22 - FOLLOW UP Follow Up: Follow up with Dr. Brooks in office in 10-14 days. - TIME SPENT Time Spent in Discharge (Minutes): 45"
[2021-03-28] MEDS ORDERED: PANTOPRAZOLE 40 MG TABLET PO SCH (07:00)
--- NOTE | 2021-03-28 07:05 | Discharge Plan ---
Discharge Plan Problem Reviewed?: Yes Disposition: Home, Self Care Condition: Good Prescriptions: oxyCODONE [Roxicodone] 5 mg PO Q4HR PRN #10 tablet PRN Reason: Pain Docusate Sodium 250Mg Capsule [Colace 250Mg Capsule] 250 mg PO DAILY #10 tab Diet: Regular Activity Restrictions: No lifting >15 pounds for Shower Restrictions: No Driving Restrictions: Yes (No driving while one pain medication.) Weight Bearing: Full Weight Additional Instructions or Follow Up instructions: No lifting >15 pounds for 6 weeks. Patient's case will be presented at [facility]. Call with ANY questions or concerns. No Smoking: If you smoke, Please STOP! Call for help. Follow-up with: Steven Awad DO [Primary Care Provider] - Dwain Brooks MD [Provider Admit Priv/Credential] -
[2021-03-28 08:13] VITALS: BP 136/72
== END 2021-03-28 09:15 | disposition home or self-care (01) | DRG 331 ==
LOC: MS2 09:43
PROVIDERS: ADMIT Surgery; ATTEND Surgery
PROC: 0DTF4ZZ Resection of Right Large Intestine, Percutaneous Endoscopic Approach (ICD-10-PCS; principal; 2021-03-25 11:00)
DX: C18.2 Malignant neoplasm of ascending colon (principal); H54.7 Unspecified visual loss; Z86.010 Personal history of colon polyps
CPT/HCPCS: 36415; 80053; 85025; A9270; J0131; J1170; J1650; J7120

== ENCOUNTER 2021-08-13 07:40 | Outpatient (CLI) | payer BC ==
[2021-08-13 08:14] LABS: BASOPHILS % (AUTO) 0.6 %; EOSINOPHILS # (AUTO) 0.3 10^3/uL (0.0-0.7); EOSINOPHILS % (AUTO) 5.3 %; HCT - HEMATOCRIT 39.1 % (37.0-47.0); HGB - HEMOGLOBIN 12.5 g/dL (12.0-16.0); LYMPHOCYTES # (AUTO) 1.5 10^3/uL (1.5-3.5); LYMPHOCYTES % (AUTO) 31.7 %; MEAN CORPUSCULAR HEMOGLOBIN 29.6 pg (27.0-31.0); MEAN CORPUSCULAR VOLUME 92.4 fL (81.0-99.0); MEAN PLATELET VOLUME 10.6 fL (7.9-10.8); MONOCYTES # (AUTO) 0.4 10^3/uL (0.0-1.0); MONOCYTES % (AUTO) 9.3 %; NEUTROPHILS # (AUTO) 2.5 10^3/uL (1.5-6.6); NEUTROPHILS % (AUTO) 53.1 %; PLT - PLATELET COUNT 211 10^3/uL (130-450); RED BLOOD COUNT 4.23 10^6/uL (4.20-5.40); RED CELL DISTRIBUTION WIDTH 13.1 % (12.0-15.0); WHITE BLOOD COUNT 4.7 x10^3/uL (4.8-10.8)
[2021-08-13 08:31] LABS: ALBUMIN 4.4 g/dL (3.2-5.5); ALBUMIN/GLOBULIN RATIO 1.4 (1.0-2.2); ALKALINE PHOSPHATASE 74 IU/L (42-121); ALT ALANINE AMINOTRANSFERASE 19 IU/L (10-60); AST ASPARTATE AMINOTRANSFERASE 17 IU/L (10-42); BILIRUBIN,TOTAL 0.9 mg/dL (0.2-1.0); BUN - BLOOD UREA NITROGEN 22 mg/dL (6-20); CALCIUM 9.1 mg/dL (8.5-10.3); CARBON DIOXIDE - CO2 30 mmol/L (21-32); CHLORIDE 100 mmol/L (101-111); CHOL/HDL RATIO 2.6 (<4.4); CHOLESTEROL 214 mg/dL; CREATININE 0.6 mg/dL (0.4-1.0); GFR - MDRD 99 (>89); GLUCOSE 89 mg/dL (70-100); HDL CHOLESTEROL 82 mg/dL; LDL CHOLESTEROL,CALCULATED 118 mg/dL; LDL/HDL RATIO 1.4 (<4.4); POTASSIUM 3.8 mmol/L (3.5-5.0); SODIUM 138 mmol/L (135-145); TOTAL PROTEIN 7.6 g/dL (6.7-8.2); TRIGLYCERIDES 71 mg/dL; VLDL CHOLESTEROL 14 mg/dL
[2021-08-13 08:41] LABS: THYROID STIMULATING HORMONE 0.94 uIU/mL (0.34-5.60)
== END 2021-08-13 07:41 | disposition home or self-care (01) ==
LOC: LAB 07:40
PROVIDERS: ATTEND Family Medicine
DX: C18.2 Malignant neoplasm of ascending colon (principal); Z13.220 Encounter for screening for lipoid disorders; Z13.29 Encounter for screening for other suspected endocrine disorder
CPT/HCPCS: 36415; 80053; 80061; 83721; 84443; 85025

== ENCOUNTER 2021-11-11 08:10 | Outpatient (CLI) | payer BC, MEDICARE ==
--- NOTE | 2021-11-11 14:51 | Mammography Report ---
BILATERAL DIGITAL SCREENING MAMMOGRAM 3D/2D: 11/11/2021 CLINICAL: Routine screening. Comparison is made to exams dated: 05/05/2020 mammogram and 10/13/2014 mammogram - [facility]. The tissue of both breasts is extremely dense, which lowers the sensitivity of mammograp hy. There are benign calcifications in both breasts. No significant masses, calcifications, or other findings are seen in either breast. There has been no significant interval change. IMPRESSION: BENIGN There is no mammographic evidence of malignancy. A 1 year screening mammogram is recommended. This exam was interpreted at Station ID: [id number]. NOTE: For mammograms, a report in lay terms will be sent to the patient. Approximately 15% of breast malignancies will not be visualized mammographically. In the management of a palpable breast mass, a negative mammogram must not discourage biopsy of a clinically suspicious lesion. Electronically Signed By: Mann Gonzales M.D. ar/penrad:11/11/2021 10:05:57 ACR BI-RADS Category 2: Benign Finding(s) 3342F PARENCHYMAL PATTERN: (VD) - The breast(s) demonstrate(s) extremely dense parenchyma, limiting the sen sitivity of mammography. BI-RADS CATEGORY: (2) - 2 RECOMMENDATION: (ANNUAL) - Recommend routine annual screening mammography. [id number] 1 year screening LATERALITY: (B)
== END 2021-11-11 08:11 | disposition home or self-care (01) ==
LOC: DI.N 08:10
DX: Z12.31 Encounter for screening mammogram for malignant neoplasm of breast (principal)

== ENCOUNTER 2022-12-05 08:00 | Outpatient (CLI) | payer BC, MEDICARE ==
--- NOTE | 2022-12-05 14:18 | XRAY Report ---
PROCEDURE: Hand 3 View RT INDICATIONS: RIGHT HAND PAIN TECHNIQUE: 3 views of the hand(s) acquired. COMPARISON: None. FINDINGS: Bones: No fractures or dislocations. No suspicious bony lesions. Soft tissues: Soft tissue mass deep to the marker on the ulnar side of the third middle phalanx. IMPRESSION: Soft tissue mass deep to the marker on the ulnar side of the third middle phalanx. No underlying bony erosion. Consider ultrasound or MRI with contrast for further evaluation. Reviewed by: Manav Preciado on 12/05/2022 2:16 PM PDT Approved by: Manav Preciado on 12/05/2022 2:16 PM PDT Station ID: [id number]
== END 2022-12-05 23:59 | disposition home or self-care (01) ==
LOC: DI.WOS 08:00
PROVIDERS: ATTEND Orthopaedic Surgery
DX: R22.31 Localized swelling, mass and lump, right upper limb (principal); M79.641 Pain in right hand

== ENCOUNTER 2022-12-05 13:07 | Outpatient (CLI) | payer BC, MEDICARE ==
--- NOTE | 2022-12-06 12:08 | Mammography Report ---
BILATERAL DIGITAL SCREENING MAMMOGRAM 3D/2D: 12/05/2022 CLINICAL: Routine screening. Comparison is made to exams dated: 11/11/2021 mammogram, 05/05/2020 mammogram, 10/13/2014 mammogram, a nd 03/05/2010 mammogram - [facility]. Both breasts are extremely dense, which lowers the sensitivity of mammography (category d />75% gland ular tissue). There are benign calcifications in both breasts. No significant masses, calcifications, or other findings are seen in either breast. There has been no significant interval change. IMPRESSION: BENIGN There is no mammographic evidence of malignancy. A 1 year screening mammogram is recommended. Based on the Tyrer Cuzick model (a risk assessment model) the patients lifetime risk is 14.6% and he r 10 year risk is 9.4%. According to the ACR, ACS, and NCCN guidelines, an annual breast MRI exam [place] ng with mammogram is recommended if the patients lifetime risk is 20% or greater. This exam was interpreted at Station ID: [id number]. NOTE: For mammograms, a report in lay terms will be sent to the patient. Approximately 15% of breast malignancies will not be visualized mammographically. In the management of a palpable breast mass, a negative mammogram must not discourage biopsy of a clinically suspicious lesion. Electronically Signed By: Suzy gomez/lexus:12/05/2022 16:44:51 letter sent: No_Letter ACR BI-RADS Category 2: Benign Finding(s) 3342F PARENCHYMAL PATTERN: (VD) - The breast(s) demonstrate(s) extremely dense parenchyma, limiting the sen sitivity of mammography. BI-RADS CATEGORY: (2) - 2 Mammogram [id number] 1 year screening LATERALITY: (B)
== END 2022-12-05 13:08 | disposition home or self-care (01) ==
LOC: DI.N 13:07
DX: Z12.31 Encounter for screening mammogram for malignant neoplasm of breast (principal)

== ENCOUNTER 2022-12-08 07:01 | Outpatient (CLI) | payer BC, MEDICARE | END 2022-12-08 07:02 | disposition home or self-care (01) | LOC: LAB 07:01 | DX: Z53.9 Procedure and treatment not carried out, unspecified reason (principal) ==

== ENCOUNTER 2022-12-08 07:09 | Outpatient (CLI) | payer BC, MEDICARE ==
[~2022-12-08 07:09] MED LIST: GADOBUTROL 7.5 MMOL/7.5 ML VIAL ONE
[2022-12-08 07:29] LABS: CREATININE 0.7 mg/dL (0.4-1.0)
[2022-12-08] MEDS ORDERED: GADOBUTROL 7.5 MMOL/7.5 ML VIAL IVP ONE (08:57)
--- NOTE | 2022-12-08 12:02 | MRI Report ---
PROCEDURE: HAND W/WO - RT INDICATIONS: GIANT CELL TUMOR OF TENDON SHEATH CONTRAST: GADAVIST 5.7 TECHNIQUE: Noncontrast coronal T1 spin echo and T2 fast spin echo with fat saturation, axial proton density fast spin echo and T2 fast spin echo with fat saturation, axial T1 spin echo with fat saturation, sagitta l T1 spin echo and STIR through the hand and fingers. Post-contrast axial, coronal, and sagittal T1 spin echo through the hand and fingers. COMPARISON: Right hand radiographs 12/05/2022 FINDINGS: Image quality: Excellent. Bones: The bones are normally aligned, without marrow contusions or fractures. No intra-osseous les ions. Multifocal joint space narrowing is seen with areas of subchondral edema and marginal osteophy te formation, involving nearly all of the distal is interphalangeal joints of the fingers as well as the 4th and 5th metacarpophalangeal joints and most prominently at the remaining metacarpophalangeal joints. Small joint effusions are seen throughout the metacarpophalangeal joints. Soft tissues: At the ulnar aspect of the middle finger just distal to the 3rd proximal interphalange al joint, there is a circumscribed oval [id number] lesion with a thin peripheral rim of enhance ment, consistent with a ganglion cyst. The cyst measures approximately 16 x 9 x 10 mm. The cyst likel y arises from the 3rd proximal interphalangeal joint. No solid enhancing soft tissue mass. Trace flui d is seen along multiple flexor tendon sheaths without significant tenosynovitis seen. The extensor t endons appear to be intact. Visualized radial collateral ligaments are grossly intact. Visualized mus cles demonstrate normal bulk and internal signal. No intramuscular masses identified. IMPRESSION: 1.Circumscribed ovoid cyst in the subcutaneous tissues along the ulnar aspect of the middle finger ad jacent to the proximal interphalangeal joint demonstrates a thin peripheral rim of enhancement, consi stent with a benign ganglion cyst. No solid soft tissue mass is seen. 2.Diffuse arthritic changes throughout the hands with prominent involvement of the metacarpophalangea l joints. Recommend correlation with clinical findings and serologies to exclude an underlying inflam matory arthritis such as rheumatoid arthritis. Reviewed by: Mann Gonzales MD on 12/08/2022 12:01 PM PDT Approved by: Mann Gonzales MD on 12/08/2022 12:01 PM PDT Station ID: [id number]
== END 2022-12-08 07:10 | disposition home or self-care (01) ==
LOC: LAB 07:09
PROVIDERS: ATTEND Orthopaedic Surgery
DX: L72.9 Follicular cyst of the skin and subcutaneous tissue, unspecified (principal); M19.041 Primary osteoarthritis, right hand
CPT/HCPCS: 36415; 73220; 82565; A9585

== ENCOUNTER 2022-12-14 08:47 | Day surgery (SDC) | payer BC, MEDICARE ==
[~2022-12-14 08:47] MED LIST changes: +ACETAMINOPHEN 500 MG TABLET PO ONE; -GADOBUTROL 7.5 MMOL/7.5 ML VIAL ONE
[2022-12-14] MEDS ORDERED: LACTATED RINGERS 1,000 ML IV ONE ×2 (09:35→12:25)
--- NOTE | 2022-12-14 10:41 | ANESTHESIA ---
Pre-Anesthesia VS, & Labs - Diagnosis ganglion cyst right 3rd finger - Procedure excision of ganglion cyst [id number] finger Vital Signs: Temp Pulse Resp BP Pulse Ox O2 Flow Rate 36.7 C 74 12 129/87 H 100 12/14/22 09:04 12/14/22 09:04 12/14/22 09:04 12/14/22 09:04 12/14/22 09:04 Height: 5 ft 4 in Weight (kg): 57 kg Body Mass Index: 21.5 BMI Classification: Normal - NPO >8 hours - Is Patient ?: No Home Medications and Allergies Cholecalciferol (Vitamin D3) [Vitamin D3] 125 mcg PO DAILY 03/19/21 Aspirin [[place]] 81 mg PO DAILY 01/10/22 Turmeric 1,000 mg PO DAILY 01/10/22 Allergies/Adverse Reactions: Allergies Allergy/AdvReac Type Severity Reaction Status Date / Time oxycodone AdvReac Nausea Verified 12/14/22 09:08 Anes History & Medical History - Anesthetic History Anesthesia Complications: reports: No previous complications - Medical History Cardiovascular: reports: None Pulmonary: reports: None Gastrointestinal: reports: None Urinary: reports: None Neuro: reports: None Musculoskeletal: reports: None Endocrine/Autoimmune: reports: None Blood Disorders: reports: None Skin: reports: None Smoking Status: Unknown if ever smoked History of Cancer?: Yes - Surgical History General: reports: Bowel surgery, Colonoscopy Eyes Ears Nose Throat (EENT): reports: Tonsil/Adenoidectomy Exam General: Alert, Oriented x3 Dental: WNL Mouth Opening: Greater than 4 Fingerbreadths Neck Mobility: Normal Mallampati classification: II Thyromental Distance: greater than 6 cm Respiratory: Lungs clear Cardiovascular: Regular rate Plan Anesthesia Type: MAC Consent for Procedure(s) Verified and Reviewed: Yes Code Status: Attempt Resuscitation ASA classification: 2-Mild systemic disease Is this case an emergency?: No
[2022-12-14] MEDS ORDERED: BUPIVACAINE 0.25% PF 30 ML VIAL ONE (10:50)
[2022-12-14] MEDS ORDERED: MIDAZOLAM 2 MG/2 ML VIAL ONE (10:53)
[2022-12-14] MEDS ORDERED: LIDOCAINE-PF 2% 10 ML AMP SUBQ ONE (11:23)
[2022-12-14] MEDS ORDERED: LIDOCAINE 1%-EPI 1:100000 20 ML MDV ONE (11:23)
[2022-12-14] MEDS ORDERED: BUPIVACAINE 0.25% PF 30 ML VIAL SUBQ ONE ×3 (11:31)
[2022-12-14] MEDS ORDERED: LIDOCAINE-MPF 2% 5 ML VIAL IM ONE ×3 (11:32)
[2022-12-14] MEDS ORDERED: PROPOFOL 500 MG/50 ML 500 MG/50 ML VIAL ONE (11:58)
--- NOTE | 2022-12-14 12:10 | OPERATIVE REPORT ---
Operative Report - General Procedure Date: 12/14/22 Planned Procedure: Removal of ganglion cyst right third finger Pre-Op Diagnosis: Ganglion cyst right third finger Procedure Performed: Excision of ganglion cyst right third finger, joint origin Post Op Diagnosis: Same as preoperative diagnosis - Procedure Note Primary Surgeon: Edy Buckley MD Secondary Surgeon: Viki RANGEL Anesthesia Provider: Yasmine Mirza CRNA Anesthesia Technique: Moderate sedation, Regional block Pathology: The cystic mass was sent to pathology. Estimated Blood Loss (mL): 1 Indications: This is 72-year-old with a cystic mass that is developed over the past few months to her right third finger. The mass has increased in size and is annoying as it affects her ability to use her finger for keyboard and other activities with the right hand.. The mass is well circumscribed to the dorsal ulnar aspect of the middle phalanx of the right third finger. It extends from the proximal inner phalangeal joint dorsal laterally and extends distally along the ulnar border of the finger dorsally. She has good joint motion and tendon function to the right third finger. Routine radiographs appear normal. Her MRI scan suggested a cystic mass consistent with a ganglion cyst that probably originated from the proximal inner phalangeal joint right third finger. She signed informed consent, agreeing to excision of the cystic mass right third finger Findings: There was a cystic mass that was traced from distal to proximal over the middle phalanx with the origin of the cyst coming from the proximal inner phalangeal joint. The mass was adhered to the lateral band which was protected. The mass had the typical clear jellylike contents consistent with a ganglion cyst Complications: None - Other Other Information/Narrative: The patient was brought to the operating room table, placed in the supine position with the right arm over an arm extension table. The right upper extremity was prepped and draped in a sterile manner in the usual fashion. A timeout procedure was performed by the entire operating room team And all were in agreement. A 50-50 mixture of 0.25% Marcaine and 2% lidocaine was utilized. Approximately 8 cc was utilized to perform a distal third metacarpal block.After satisfactory anesthesia had been achieved, a ring digital tourniquet was applied exsanguinating the third finger from distal to proximal and secured over the proximal phalanx. A dorsal lateral incision was made directly over the mass. Skin hooks were inserted. The entire surgical procedure was performed using Zeiss 3.2X loupe magnification. The mass was identified and distal dissection was performed, trying to protect the lateral band beneath the mass. The mass was lifted using tenotomy scissors from distal to proximal, using gentle traction on the mass. The mass was traced proximally to the proximal inner phalangeal joint where it was removed with a small button of capsule. The wound was irrigated. The lateral band soft tissue attachment was repaired laterally to prevent subluxation. The tourniquet was removed with good return of c irculation. The skin was closed with 3-0 Monocryl subcuticular suture, Dermabond, sterile tube gauze dressing. She tolerated procedure well. A physician pediatric medical assistant was medically necessary to help with prepping and draping, positioning, protection of vital structures, assistance during the procedure including wound closure, dressing and/or splinting.
--- NOTE | 2022-12-14 12:16 | OPERATIVE REPORT ---
Operative Report - General Procedure Date: 12/14/22
[2022-12-14] MEDS ORDERED: CELECOXIB 100 MG CAPSULE PO PRN (12:27)
[2022-12-14] MEDS ORDERED: ONDANSETRON 4 MG/2 ML VIAL IVP PRN (12:27)
--- NOTE | 2022-12-14 12:34 | ANESTHESIA POST OP EVALUATION ---
Anesthesia Post Eval - Post Anesthesia Eval Vitals: Last Vital Signs Temp 36.5 C 12/14/22 12:25 Pulse 58 L 12/14/22 12:25 Resp 12 12/14/22 12:25 BP 147/84 H 12/14/22 12:25 Pulse Ox 100 12/14/22 12:25 O2 Flow Rate CV Function Including HR & BP: Stable Pain Control: Satisfactory Nausea & Vomiting: Negative Mental Status: Baseline Respiratory Status: Airway Patent Hydration Status: Satisfactory Anesthesia Complications: None
[2022-12-14 13:11] VITALS: BP 127/68
[2022-12-14] MEDS ORDERED: ACETAMINOPHEN 500 MG TABLET PO PRN (15:30)
== END 2022-12-14 08:48 | disposition home or self-care (01) ==
LOC: SDS 08:47
PROVIDERS: ATTEND Orthopaedic Surgery
PROC: 0RBW0ZZ Excision of Right Finger Phalangeal Joint, Open Approach (ICD-10-PCS; principal; 2022-12-14 10:00)
DX: M67.441 Ganglion, right hand (principal)
CPT/HCPCS: 26160; A9270; J7120